=== PATIENT | female | born 1970 | race Caucasian/White ===

== ENCOUNTER 2017-09-27 22:33 | Emergency (ER) | payer BC ==
[2017-09-27] MEDS ORDERED: Albuterol/Ipratropium NEB.SOL* Albuterol 2.5 MG/Ipratropium 0.5 MG 3 ML INH ONE (23:07)
[2017-09-27] MEDS ORDERED: Albuterol 2.5 MG/3 ML NEB.SOL* (0.083%) INH ONE (23:07)
[2017-09-27] MEDS ORDERED: Acetaminophen TAB* 325 MG PO ONE (23:07)
[2017-09-27] MEDS ORDERED: Ketorolac INJ* 30 MG/ML 1 ML VIAL IV PUSH ONE (23:09)
[2017-09-27 23:28] LABS: Hematocrit 40 % (35-47); Mean Corpuscular HGB Conc 35 g/dl (31-36); Mean Corpuscular Hemoglobin 32 pg (27-31); Mean Corpuscular Volume 92 fL (80-97); Mean Platelet Volume 9 um3 (7.4-10.4); Red Blood Count 4.33 10^6/ul (4.0-5.4); Red Cell Distribution Width 12 % (10.5-15); White Blood Count 14.6 10^3/ul (3.5-10.8)
[2017-09-27 23:39] LABS: Albumin 4.1 g/dL (3.2-5.2); BUN/Creatinine Ratio 20.2 (8-20); C Reactive Protein 13.77 mg/L (< 5.00); Calcium 9.1 mg/dL (8.6-10.3); EGFR African American 82.4 (>60); EGFR Non-African American 64.1 (>60); Globulin 2.6 g/dL (2-4); Total Bilirubin 0.8 mg/dL (0.2-1.0); Total Protein 6.7 g/dL (6.4-8.9)
[2017-09-28 00:03] LABS: Potassium 4.4 mmol/L (3.5-5.0)
[2017-09-28] MEDS ORDERED: NS 0.9% 1000 ML* 1,000 ML IV ONE (00:35)
[2017-09-28] MEDS ORDERED: Insulin REGULAR(*) 1 UNITS UNIT IV PUSH ONE (00:35)
[2017-09-28] MEDS ORDERED: Iohexol 350* (CONTRAST) 500 ML MDV IV ONE (00:43)
--- NOTE | 2017-09-28 02:44 | ED ---
Robert Hurst Thomas, scribed for Walter Mcfarland MD on 09/27/17 at 2306 . Respiratory - HPI Summary HPI Summary: The patient is a 48 year old female presenting to the emergency department complaining of a cough, postnasal drip, and nasal congestion for the last month. She rates her pain 2/10. The patient has treated the symptoms with codeine cough syrup, Zithromax, and an inhaler. She has been evaluated at [facility] urgent care as well as her primary care physician. Patient complains of low back pain when she coughs. She says she feels as if she cannot catch her breath when she coughs. Patient denies fever. - History of Current Complaint Chief Complaint: EDUpperRespComplaint Stated Complaint: DIFFICULTY BREATHING, SOB, BACK PAIN Time Seen by Provider: 09/27/17 22:54 Hx Obtained From: Patient Onset/Duration: Lasting Weeks - onset one month ago, Still Present Timing: Constant Current Severity: Moderate Pain Intensity: 2 Character: Cough (Nonproductive) Aggravating Factor(s): Nothing Alleviating Factor(s): Nothing Associated Signs and Symptoms: Negative - fever, Nasal Congestion - Allergy/Home Medications Allergies/Adverse Reactions: Allergies Allergy/AdvReac Type Severity Reaction Status Date / Time Amoxicillin Allergy Hives Verified 01/15/14 00:47 Phenobarbital Allergy Hives Verified 01/15/14 00:47 PMH/Surg Hx/FS Hx/Imm Hx Previously Healthy: Yes Endocrine/Hematology History: Denies: Hx Diabetes Cardiovascular History: Reports: Hx Hypertension, Other Cardiovascular Problems/ Disorders - WENCKEBACH AV BLOCK - Cancer History Hx Chemotherapy: No Hx Radiation Therapy: No - Surgical History Surgery Procedure, Year, and Place: ENDOMETRIAL ABLASION FEBRUARY 2002 [facility] – [place] Infectious Disease History: Yes Infectious Disease History: Denies: Traveled Outside the [place] in Last 30 Days - Family History Known Family History: Positive: Other - Patient denies relevant FHx - Social History Alcohol Use: Rare Substance Use Type: Reports: None Review of Systems Negative: Fever Positive: Other - Postnasal drip, nasal congestion Positive: Cough Positive: Other - Low back pain All Other Systems Reviewed And Are Negative: Yes Physical Exam - Summary Physical Exam Summary: VITAL SIGNS: Reviewed. GENERAL: Patient is a well-developed and nourished female who is lying comfortable in the stretcher. Patient is not in any acute respiratory distress. HEAD AND FACE: No signs of trauma. No ecchymosis, hematomas or skull depressions. No sinus tenderness. EYES: PERRLA, EOMI x 2, No injected conjunctiva, no nystagmus. NOSE: She has nasal congestion. EARS: Hearing grossly intact. Ear canals and tympanic membranes are within normal limits. MOUTH: Oropharynx within normal limits. NECK: Supple, trachea is midline, no adenopathy, no JVD, no carotid bruit, no c- spine tenderness, neck with full ROM. CHEST: Symmetric, no tenderness at palpation LUNGS: Clear to auscultation bilaterally. No wheezing or crackles. CVS: Regular rate and rhythm, S1 and S2 present, no murmurs or gallops appreciated. ABDOMEN: Soft, non-tender. No signs of distention. No rebound no guarding, and no masses palpated. Bowel sounds are normal. EXTREMITIES: FROM in all major joints, no edema, no cyanosis or clubbing. NEURO: Alert and oriented x 3. No acute neurological deficits. Speech is normal and follows commands. SKIN: Dry and warm Triage Information Reviewed: Yes Vital Signs On Initial Exam: Initial Vitals Temp Pulse Resp BP Pulse Ox 97.6 F 112 24 164/93 96 09/27/17 22:41 09/27/17 22:41 09/27/17 22:41 09/27/17 22:41 09/27/17 22:41 Vital Signs Reviewed: Yes Diagnostics - Vital Signs Vital Signs Temp Pulse Resp BP Pulse Ox 09/27/17 22:41 97.6 F 112 24 164/93 96 - Laboratory Result Diagrams: 09/27/17 23:16 09/27/17 23:16 Lab Statement: Any lab studies that have been ordered have been reviewed, and results considered in the medical decision making process. Disposition - Course Assessment/Plan: The patient is a 48 year old female presenting to the emergency department complaining of a cough, postnasal drip, and nasal congestion for the last month. In the ED course the patient was given acetaminophen, Ventolin, Duo-Neb, and Toradol. Bloodwork was obtained and it shows WBC 14.6, glucose 327, and CRP 13.77. CXR is negative. CTA Chest shows No pulmonary embolus is noted in the major central pulmonary arteries. There is motion artifact degrading the images fo the mid to distal pulmonary arteries. These cannot be adequately evaluated. Negative for thoracic aortic aneurysm or dissection. Lungs are clear of acute disease. Prominent fatty liver noted. There is cholelithiasis. Influenza A and B are negative. The patient is diagnosed with diabetes, viral syndrome, and reactive airway disease. The patient is instructed to follow up with primary care. The patient is prescribed Ventolin, Symbicort, and metformin. - Diagnoses Provider Diagnoses: Diabetes, Viral syndrome, Reactive airway disease Discharge - Discharge Plan Condition: Stable Disposition: HOME Prescriptions: Albuterol 2.5MG/3ML (0.083%)* [Ventolin 2.5 MG/3 ML NEB.AMBER*] 2.5 mg INH Q6H PRN #60 neb.amber PRN Reason: Sob/Wheezing Budesonide/Formote 160/4.5(NF) [Symbicort 160/4.5 (NF)] 2 puff INH BID #7 inh Metformin HCl 500 mg PO BID #60 tab Patient Education Materials: Type 2 Diabetes in Adults (ED), Reactive Airways Disease (ED), Viral Syndrome (ED) Referrals: Meliton South MD [Primary Care Provider] - 3 Days Additional Instructions: Follow up with your primary care physician in three days. Return to the emergency department for any new or worsening symptoms. The documentation as recorded by the Robert wahl Thomas accurately reflects the service I personally performed and the decisions made by , Walter Mcfarland MD.
[2017-09-28 03:10] VITALS: BP 114/66
--- NOTE | 2017-09-28 07:41 | RAD ---
Indication: Cough. Single frontal view of the chest performed at 2336 hours was reviewed. Comparison is made with previous exam dated January 15, 2014. No mediastinal shift is noted. Heart is of normal size and configuration. Lung leblanc appear clear. IMPRESSION: NO ACTIVE CARDIOPULMONARY DISEASE IS NOTED.
--- NOTE | 2017-09-28 08:17 | RAD ---
INDICATION: Back pain shortness of breath COMPARISON: None TECHNIQUE: Axial source images were acquired following the administration of 77 mL Omnipaque [address] angiographic technique. Coronal and sagittal reconstructed images were constructed and reviewed. FINDINGS: Poor bolus timing yields a Hounsfield unit overlying the mainstem pulmonary artery of only 217 Hounsfield units. There is a mild degree of motion artifact during image acquisition as well. These factors combine to limit evaluation of the pulmonary arteries beyond the central lobar pulmonary arteries. There there are no filling defects in the centrilobular pulmonary arteries to indicate acute centrilobular pulmonary embolic disease. The distal lobar branches and segmental branches are not adequately evaluated on this CT examination. There are no focal infiltrates or effusions. There are no pulmonary parenchymal masses. The heart is normal in size. There is no evidence of pericardial effusion. There is no evidence of aortic aneurysm or dissection. There is no mediastinal, hilar, or axillary lymphadenopathy. Mild degenerative changes of the thoracic spine includes loss of intervertebral disc height. The visualized portions of the liver are homogenously hypodense relative to the spleen. There are at least 2 gallbladder stones noted. IMPRESSION: 1. Limited CTA due to poor bolus timing and respiratory motion which prevents reliable evaluation beyond the proximal lobar arteries. 2. There is no centrilobular pulmonary embolism. 3. Hepatic steatosis. 4. Additional chronic and degenerative changes described in the body of the report.
== END 2017-09-28 03:08 | disposition home or self-care (01) ==
LOC: ED 22:33
DX: B34.9 Viral infection, unspecified (principal); J45.909 Unspecified asthma, uncomplicated; E11.9 Type 2 diabetes mellitus without complications; Z88.3 Allergy status to other anti-infective agents; Z88.8 Allergy status to other drugs, medicaments and biological substances; K76.0 Fatty (change of) liver, not elsewhere classified
CPT/HCPCS: 36415; 71010; 71275; 80053; 85025; 86140; 87502; 96374; 96375; 99285; A9270-GY; J1885; Q9967

== ENCOUNTER 2017-10-02 08:29 | Emergency (ER) | payer BC ==
[2017-10-02 08:39] VITALS: BP 133/93
--- NOTE | 2017-10-02 09:00 | UC ---
Throat Pain/Nasal David HPI - HPI Summary HPI Summary: 47 Y/O female presents with C/O sinus congestion, sinus tenderness, and headache. has been ill for approximately one month, was treated for bronchitis at the end of August. She was seen in the ER on 09/27/17, flu negative on that visit. Treated for Viral illness. Denies dyspnea, nausea, or body aches. Medical history significant for HTN, recently started on Metformin for elevated blood glucose. Blood pressure is elevated at this visit - has not taken blood pressure medication yet today. will take when she returns home. - History of Current Complaint Stated Complaint: SINUS COMPLAINT Time Seen by Provider: 10/02/17 08:38 Hx Obtained From: Patient Hx Last Menstrual Period: doesnt get ?: Yes Onset/Duration: Gradual Onset Severity: Moderate Pain Intensity: 7 Pain Scale Used: 0-10 Numeric Cough: Productive Associated Signs & Symptoms: Positive: Fever - Epiglottits Risk Factors Epiglottis Risk Factors: Negative - Allergies/Home Medications Allergies/Adverse Reactions: Allergies Allergy/AdvReac Type Severity Reaction Status Date / Time Amoxicillin Allergy Hives Verified 10/02/17 08:38 Phenobarbital Allergy Hives Verified 10/02/17 08:38 Home Medications: Home Medications Lansoprazole [Prevacid] 30 mg PO DAILY 10/02/17 [History Confirmed 10/02/17] Lisinopril/HCTZ 07/15.5(NF) [Zestoretic 07/15.5(NF)] 1 tab PO DAILY 10/02/17 [ History Confirmed 10/02/17] PMH/Surg Hx/FS Hx/Imm Hx Previously Healthy: Yes Cardiovascular History: Hypertension Respiratory History: Bronchitis - Surgical History Surgical History: Yes Surgery Procedure, Year, and Place: ENDOMETRIAL ABLASION FEBRUARY 2002 [facility] - Family History Known Family History: Positive: Other - Patient denies relevant FHx - Social History Alcohol Use: Rare Substance Use Type: None Smoking Status (MU): Never Smoked Tobacco - Immunization History Most Recent Influenza Vaccination: not UTD Review of Systems Constitutional: Fever Skin: Negative Eyes: Eye Redness ENT: Sinus Congestion, Sinus Pain/Tenderness Respiratory: Cough Cardiovascular: Negative Gastrointestinal: Negative Genitourinary: Negative Motor: Negative Neurovascular: Negative Musculoskeletal: Negative Neurological: Negative Psychological: Negative Is Patient Immunocompromised?: No All Other Systems Reviewed And Are Negative: Yes Physical Exam Triage Information Reviewed: Yes Appearance: Well-Appearing Vital Signs: Initial Vital Signs Temp 99.4 F 10/02/17 08:33 Pulse 105 10/02/17 08:33 Resp 20 10/02/17 08:33 BP 133/93 10/02/17 08:33 Pulse Ox 99 10/02/17 08:33 Vital Signs Reviewed: Yes Eyes: Positive: Other: - redness without exudate ENT Exam: Other ENT: Positive: Pharyngeal erythema, Nasal congestion, Sinus tenderness Neck exam: Normal Neck: Positive: No Lymphadenopathy Respiratory Exam: Normal Respiratory: Positive: Lungs clear Cardiovascular Exam: Normal Cardiovascular: Positive: RRR Abdominal Exam: Normal Abdomen Description: Positive: Nontender Bowel Sounds: Positive: Present Musculoskeletal Exam: Normal Neurological Exam: Normal Psychological Exam: Normal Skin Exam: Normal Throat Pain/Nasal Course/Dx - Differential Dx/Diagnosis Differential Diagnosis/HQI/PQRI: Pharyngitis, Sinusitis Provider Diagnoses: Sinusitis Discharge - Discharge Plan Condition: Stable Disposition: HOME Patient Education Materials: Sinusitis (ED) Referrals: Meliton South MD [Primary Care Provider] - Additional Instructions: Please take your medications for blood pressure as soon as possible. Take antibiotic as directed. Increase fluids and get plenty of rest. Follow up with your primary medical provider or with Urgent Care if symptoms worsen or do not improve over the next 3 - 4 days.
== END 2017-10-02 09:15 | disposition home or self-care (01) ==
LOC: UCEAST 08:29
DX: J32.9 Chronic sinusitis, unspecified (principal); I10 Essential (primary) hypertension; Z88.0 Allergy status to penicillin; Z88.8 Allergy status to other drugs, medicaments and biological substances
CPT/HCPCS: 99212; G0463

== ENCOUNTER → 2018-08-01 19:02 | Emergency (ER) | payer BC ==
[~2018-08-01 19:02] MED LIST: Dicyclomine CAP* 10 MG PO ONE
[2018-08-01 21:18] LABS: ABS Basophils 0.1 10^3/ul (0-0.2); ABS Eosinophils 0.1 10^3/ul (0-0.6); ABS Lymphocytes 3.2 10^3/ul (1.0-4.8); ABS Monocytes 0.8 10^3/ul (0-0.8); ABS Neutrophils 5.7 10^3/ul (1.5-7.7); ABS Nucleated RBC 0 10^3/ul; Eosinophil % 0.8 % (0-6); Hematocrit 41 % (35-47); Hemoglobin 14.1 g/dl (12.0-16.0); Lymphocyte % 32.6 % (25-47); Mean Corpuscular HGB Conc 35 g/dl (31-36); Mean Corpuscular Hemoglobin 32 pg (27-31); Mean Corpuscular Volume 92 fL (80-97); Mean Platelet Volume 8.8 um3 (7.4-10.4); Nucleated Red Blood Cells % 0; Platelet Count 197 10^3/ul (150-450); Red Blood Count 4.43 10^6/ul (4.00-5.40); Red Cell Distribution Width 12 % (10.5-15); White Blood Count 9.7 10^3/ul (3.5-10.8)
--- NOTE | 2018-08-01 21:19 | ED ---
Abdominal Pain/Female - HPI Summary HPI Summary: A 48 y/o female presents to the ED c/o abd pain since 07/31/2018 at 18:30. She feels like there is a snake moving around in her stomach and says that her pain is intermittent. She states that she almost lost consciousness due to cramps. The pt claims that she usually has constipation. However, the pt claims to have had diarrhea last night and bright red diarrhea at 11:30 today. She states that she feels hot and cold at the same time, but denies fevers or chills. - History of Current Complaint Chief Complaint: EDAbdPain Stated Complaint: BLOOD IN STOOL Time Seen by Provider: 08/01/18 20:59 Hx Obtained From: Patient Hx Last Menstrual Period: doesnt get Onset/Duration: Sudden Onset, Lasting Days, Still Present Timing: Constant Severity Initially: Moderate Severity Currently: Moderate Pain Intensity: 3 Pain Scale Used: 0-10 Numeric Location: Diffuse - "across her abd" Radiates: No Associated Signs and Symptoms: Positive: Constipation - Before today, Blood in Stool - today Allergies/Adverse Reactions: Allergies Allergy/AdvReac Type Severity Reaction Status Date / Time amoxicillin Allergy Hives Verified 08/01/18 19:19 phenobarbital Allergy Hives Verified 08/01/18 19:19 Home Medications: Home Medications Atorvastatin* [Lipitor*] 10 mg PO DAILY 08/01/18 [History Confirmed 08/01/18] PMH/Surg Hx/FS Hx/Imm Hx Endocrine/Hematology History: Reports: Hx Diabetes - metformin Cardiovascular History: Reports: Hx Hypertension, Other Cardiovascular Problems/ Disorders - W[place]ACH AV BLOCK History: Denies: Hx Renal Disease - Cancer History Hx Chemotherapy: No Hx Radiation Therapy: No - Surgical History Surgery Procedure, Year, and Place: ENDOMETRIAL ABLASION FEBRUARY 2002 [facility] [place] Infectious Disease History: No Infectious Disease History: Denies: Traveled Outside the [place] in Last 30 Days - Family History Known Family History: Positive: Other - Patient denies relevant FHx - Social History Alcohol Use: Rare Substance Use Type: Reports: None Smoking Status (MU): Never Smoked Tobacco Review of Systems Negative: Fever, Chills Positive: Abdominal Pain, Diarrhea - bloody All Other Systems Reviewed And Are Negative: Yes Physical Exam - Summary Physical Exam Summary: Appearance: Well-appearing, Well-nourished, lying in bed comfortable Skin: Warm, dry, no obvious rash Eyes: sclera anicteric, no conjunctival pallor ENT: mucous membranes moist Neck: deferred Respiratory: No signs of respiratory distress Cardiovascular: Appears well perfused, pulses are nml Abdomen: deferred Musculoskeletal: Moving all 4 extremities without obvious discomfort Neurological: Awake and alert, mentation is normal, speech is fluent and appropriate Psychiatric: affect is normal, does not appear anxious or depressed Rectal exam: Positive for blood Triage Information Reviewed: Yes Vital Signs On Initial Exam: Initial Vitals Temp Pulse Resp BP Pulse Ox 97.6 F 87 14 119/87 100 08/01/18 19:15 08/01/18 19:15 08/01/18 19:15 08/01/18 19:15 08/01/18 19:15 Vital Signs Reviewed: Yes Diagnostics - Vital Signs Vital Signs Temp Pulse Resp BP Pulse Ox 08/01/18 19:15 97.6 F 87 14 119/87 100 - Laboratory Result Diagrams: 08/01/18 21:03 08/01/18 21:03 Lab Statement: Any lab studies that have been ordered have been reviewed, and results considered in the medical decision making process. Abdominal Pain Fem Course/Dx - Course Course Of Treatment: A 48 y/o female presents to the ED c/o abd pain since 07/31 at 18:30. She feels like there is a snake moving around in her stomach and says that her pain is intermittent. She states that she almost lost consciousness due to cramps. The pt claims that she usually has constipation. However, the pt claims to have had diarrhea last night and bright red diarrhea at 11:30 today. She states that she feels hot and cold at the same time, but denies fevers or chills. Dx: infectious colitis. The pt will be discharged home and is agreeable with this plan. - Diagnoses Provider Diagnoses: Infectious colitis Discharge - Discharge Plan Condition: Good Disposition: HOME Prescriptions: Dicyclomine CAP* [Bentyl CAP*] 10 mg PO TID PRN #15 cap PRN Reason: Pain - Abdominal Patient Education Materials: Infectious Colitis (ED) Referrals: Meliton South MD [Primary Care Provider] - 3 Days - Attestation Statements Document Initiated by Scribe: Yes Documenting Scribe: Ulysses Gomez Provider For Whom Scribe is Documenting (Include Credential): Andrew Soto MD Scribe Attestation: I, Ulysses Gomez, scribed for Andrew Soto MD on 08/01/18 at 1350.
[2018-08-01 21:30] LABS: EGFR Non-African American 80.4 (>60)
[2018-08-01 22:28] LABS: Urine Appearance Cloudy; Urine Blood Negative (Negative); Urine Color Yellow; Urine Ketones Negative (Negative); Urine Protein 1+(30 mg/dL) (Negative); Urine Red Blood Cell Absent (Absent); Urine Specific Gravity 1.026 (1.010-1.030); Urine Urobilinogen Negative (Negative); Urine White Blood Cell Trace(0-5/hpf) (Absent)
[2018-08-01 23:20] VITALS: BP 117/82
== END | disposition home or self-care (01) ==
LOC: ED 19:02
DX: A09 Infectious gastroenteritis and colitis, unspecified (principal); Z88.0 Allergy status to penicillin; K59.00 Constipation, unspecified; R10.9 Unspecified abdominal pain; R19.7 Diarrhea, unspecified
CPT/HCPCS: 36415; 80053; 81003; 81015; 83690; 84702; 85025; 86140; 87086; 99283; A9270-GY

== ENCOUNTER 2019-03-23 23:26 | Emergency (ER) | payer BC, OTHER ==
--- NOTE | 2019-03-24 00:18 | ED ---
HPI Chest Pain - HPI Summary HPI Summary: This pt is a 48 [facility] [place] midsternal chest pain today since around 23:00 on 03/23/19. Pt reports she was sitting down on her couch at onset of her chest pain. She describes midsternal sharp chest pain radiating to her back. Denies fever, SOB, nausea, vomiting. Currently she rates her pain 3/ 10 in severity and states it is better now. Pt notes she has not had pain like this in the past. PMHx includes DM, high cholesterol, Wenckebach, Lyme disease, GERD. Her medications include Metformin, Omeprazole. She states her last stress test was about 8 years ago. Denies tobacco use. FHx: father with heart disease around age 55. - History of Current Complaint Chief Complaint: EDChestPainROMI Time Seen by Provider: 03/24/19 00:11 Hx Obtained From: Patient Hx Last Menstrual Period: doesnt get Onset/Duration: Started Hours Ago, Still Present Timing: Lasting Hours Initial Severity: Moderate Current Severity: Mild Pain Intensity: 3 Pain Scale Used: 0-10 Numeric Chest Pain Location: Mid Sternal Chest Pain Radiates: Yes Chest Pain Radiates To:: Back Character: Sharp/Stabbing - sharp Aggravating Factor(s): Nothing Alleviating Factor(s): Nothing Associated Signs and Symptoms: Positive: Chest Pain. Negative: Shortness of Breath, Fever, Chills, Nausea, Vomiting - Allergy/Home Medications Allergies/Adverse Reactions: Allergies Allergy/AdvReac Type Severity Reaction Status Date / Time amoxicillin Allergy Hives Verified 08/01/18 19:19 phenobarbital Allergy Hives Verified 08/01/18 19:19 PMH/Surg Hx/FS Hx/Imm Hx Endocrine/Hematology History: Reports: Hx Diabetes - metformin Cardiovascular History: Reports: Hx Hypercholesterolemia, Hx Hypertension, Other Cardiovascular Problems/Disorders - WENCKEBACH AV BLOCK GI History: Reports: Hx Gastroesophageal Reflux Disease History: Denies: Hx Renal Disease - Cancer History Hx Chemotherapy: No Hx Radiation Therapy: No - Surgical History Surgery Procedure, Year, and Place: ENDOMETRIAL ABLASION FEBRUARY 2002 [facility] [place] Infectious Disease History: No Infectious Disease History: Denies: Traveled Outside the [place] in Last 30 Days - Family History Known Family History: Positive: Cardiac Disease - father - Social History Alcohol Use: Rare Substance Use Type: Reports: None Smoking Status (MU): Never Smoked Tobacco Review of Systems Negative: Fever, Chills Positive: Chest Pain Negative: Shortness Of Breath Negative: Vomiting, Nausea All Other Systems Reviewed And Are Negative: Yes Physical Exam - Summary Physical Exam Summary: VITAL SIGNS: Reviewed. GENERAL: Patient is a well-developed and nourished female who is lying comfortable in the stretcher. Patient is not in any acute respiratory distress. HEAD AND FACE: No signs of trauma. No ecchymosis, hematomas or skull depressions. No sinus tenderness. EYES: PERRLA, EOMI x 2, No injected conjunctiva, no nystagmus. EARS: Hearing grossly intact. Ear canals and tympanic membranes are within normal limits. MOUTH: Oropharynx within normal limits. NECK: Supple, trachea is midline, no adenopathy, no JVD, no carotid bruit, no c- spine tenderness, neck with full ROM. CHEST: Symmetric, no tenderness at palpation LUNGS: Clear to auscultation bilaterally. No wheezing or crackles. CVS: Regular rate and rhythm, S1 and S2 present, no murmurs or gallops appreciated. ABDOMEN: Soft, non-tender. No signs of distention. No rebound no guarding, and no masses palpated. Bowel sounds are normal. EXTREMITIES: FROM in all major joints, no edema, no cyanosis or clubbing. NEURO: Alert and oriented x 3. No acute neurological deficits. Speech is normal and follows commands. SKIN: Dry and warm Triage Information Reviewed: Yes Vital Signs On Initial Exam: Initial Vitals Temp Pulse Resp BP Pulse Ox 98 F 93 18 127/96 98 03/23/19 23:30 03/23/19 23:30 03/23/19 23:30 03/23/19 23:30 03/23/19 23:30 Vital Signs Reviewed: Yes Diagnostics - Vital Signs Vital Signs Temp Pulse Resp BP Pulse Ox 03/23/19 23:30 98 F 93 18 127/96 98 - Laboratory Result Diagrams: 03/24/19 00:57 03/24/19 00:57 Lab Statement: Any lab studies that have been ordered have been reviewed, and results considered in the medical decision making process. - Radiology Chest XR Radiology Interpretation Completed By: ED Physician Summary of Radiographic Findings: No acute process. Pending official radiology report. - EKG 23:35 Cardiac Rate: NL - at 81 bpm EKG Rhythm: Sinus Rhythm Summary of EKG Findings: Normal axis. Normal interval. No ischemic changes. Re-Evaluation - Re-Evaluation First Eval Re-Evaluation Time: 01:40 Change: Unchanged Comment: Pt reports pain is about the same. She will be given a GI cocktail. Second Eval Re-Evaluation Time: 03:51 Comment: Reviewed lab results with pt. She will be discharged home. Chest Pain Course/Dx - Course Assessment/Plan: Pt is a 48 y/o female, with hx of DM, presenting to [facility] c/o midsternal chest pain today since around 23:00 on 03/23/19. Pt reports she was sitting down on her couch at onset of her chest pain. She describes midsternal sharp chest pain radiating to her back. Denies fever, SOB, nausea, vomiting. Currently she rates her pain 3/10 in severity and states it is better now. Pt notes she has not had pain like this in the past. Patient had two negative troponins. Pt's EKG is normal. In the ED course the pt was given aspirin, GI cocktail, Protonix. Pt is recommended to have a stress test as an outpatient. She will be discharged home with follow up from her PCP in 2-3 days. Return to ED precautions were given. - Diagnoses Provider Diagnoses: Chest pain Discharge - Sign-Out/Discharge Documenting (check all that apply): Patient Departure - Discharge home Patient Received Moderate/Deep Sedation with Procedure: No - Discharge Plan Condition: Stable Disposition: HOME Patient Education Materials: Chest Pain (ED) Referrals: Meliton South MD [Primary Care Provider] - Additional Instructions: Recommend a cardiac stress test as an outpatient. Follow up with your primary care provider in 2-3 days. RETURN TO THE ED IMMEDIATELY FOR WORSENING OR CONCERNING SYMPTOMS. - Attestation Statements Document Initiated by Scribe: Yes Documenting Scribe: Lesa Martinez Provider For Whom Talha is Documenting (Include Credential): Walter Mcfarland MD Scribe Attestation: Lesa Hurst, scribed for Walter Mcfarland MD on 03/24/19 at [id number]. Status of Scribe Document: Ready
[2019-03-24] MEDS ORDERED: Pantoprazole IV* 40 MG IV ONE (00:24)
[2019-03-24] MEDS ORDERED: Aspirin 81 mg CHEW TAB* 81 MG TAB.CHEW PO ONE (00:24)
[2019-03-24 01:03] LABS: ABS Basophils 0.1 10^3/ul (0-0.2); ABS Eosinophils 0.1 10^3/ul (0-0.6); ABS Lymphocytes 2.3 10^3/ul (1.0-4.8); ABS Monocytes 0.7 10^3/ul (0-0.8); ABS Neutrophils 5.7 10^3/ul (1.5-7.7); Hematocrit 40 % (35-47); Hemoglobin 13.7 g/dL (12.0-16.0); Lymphocyte % 25.7 %; Mean Corpuscular HGB Conc 34 g/dL (31-36); Mean Corpuscular Hemoglobin 31 pg (27-31); Mean Corpuscular Volume 91 fL (80-97); Platelet Count 203 10^3/uL (150-450); Red Blood Count 4.37 10^6 /uL (3.70-4.87); Red Cell Distribution Width 13 % (10-15); White Blood Count 8.9 10^3/uL (3.5-10.8)
[2019-03-24 01:11] LABS: Activated Partial Thrombo Time 30.6 seconds (26.0-38.0); INR 0.92 (0.82-1.09)
[2019-03-24 01:24] LABS: Albumin 4.1 g/dL (3.2-5.2); Albumin/Globulin Ratio 1.6 (1-3); Calcium 9.7 mg/dL (8.6-10.3); EGFR African American 101.8 (>60); EGFR Non-African American 84.1 (>60); Globulin 2.5 g/dL (2-4); Magnesium 1.8 mg/dL (1.9-2.7); Potassium 4.1 mmol/L (3.5-5.0); Total Bilirubin 1.2 mg/dL (0.2-1.0); Total Protein 6.6 g/dL (6.4-8.9)
[2019-03-24] MEDS ORDERED: Al Hydrox/Mg Hydrox/Simet LIQ* 30 ML UDC PO ONE (01:39)
[2019-03-24] MEDS ORDERED: Lidocaine 2% VISCOUS* 15 ML UDC PO ONE (01:39)
[2019-03-24 03:56] VITALS: BP 108/65
== END 2019-03-24 03:56 | disposition home or self-care (01) ==
LOC: ED 23:26
DX: R07.89 Other chest pain (principal); E11.9 Type 2 diabetes mellitus without complications; Z79.84 Long term (current) use of oral hypoglycemic drugs; I44.1 Atrioventricular block, second degree; K21.9 Gastro-esophageal reflux disease without esophagitis; Z88.0 Allergy status to penicillin; Z88.8 Allergy status to other drugs, medicaments and biological substances
CPT/HCPCS: 36415; 71045; 80053; 83735; 84484; 85025; 85610; 85730; 93005; 96374; 99284; A9270-GY